=== PATIENT | male | born 1950 | race Caucasian/White ===

== ENCOUNTER → 2016-03-15 | Day surgery (SDC) | payer OTHER ==
[~2016-03-15] MED LIST: ACETYLCYSTEINE 20% 6,000 MG/30 ML ORAL SOLN VIAL ONE; LACTATED RINGER'S 1,000 ML BAG IV ONE; OMEP40CA2 PO; PROPOFOL 500 MG/50 ML BTL IV ONE; RESP: ALBUTEROL 2.5 MG/3 ML NEB (SCH) ONE
== END | disposition home or self-care (01) ==
LOC: ESDC 07:47
PROVIDERS: ATTEND Internal Medicine Gastroenterology
DX: K22.70 Barrett's esophagus without dysplasia (principal)
CPT/HCPCS: 00740; 43229; 88305; J3010; J7120; J7613

== ENCOUNTER → 2016-04-14 | Outpatient (CLI) | payer OTHER ==
[~2016-04-14] VITALS: Ht 176.5 cm; Wt 84.3 kg
[~2016-04-14] MED LIST changes: -ACETYLCYSTEINE 20% 6,000 MG/30 ML ORAL SOLN VIAL ONE; -LACTATED RINGER'S 1,000 ML BAG IV ONE; +PROPOFOL 200 MG/20 ML AMP IV ONE; -PROPOFOL 500 MG/50 ML BTL IV ONE; -RESP: ALBUTEROL 2.5 MG/3 ML NEB (SCH) ONE
[2016-04-14 08:18] VITALS: BP 153/90; PULSE 76; RESP 16; TEMP 98.4; O2SAT 98
--- NOTE | 2016-04-14 09:29 | EKG ---
Date Performed: 04/14/2016 Time Performed: 08:21:46 PTAGE: 66 years EKG: Sinus rhythm NORMAL ECG NO PREVIOUS TRACING DOCTOR: Thad Arevalo Interpretating Date/Time 04/14/2016 09:28:47
[2016-04-14 11:30] VITALS: BP 136/82; PULSE 65; RESP 20; TEMP 97.6; O2SAT 98
--- NOTE | 2016-04-14 11:30 | PD.PROCEDR ---
GI Procedure REFERRING PHYSICIAN Dr. Metzger PROCEDURE PERFORMED Endoscopic ultrasound INDICATION FOR PROCEDURE Cole's esophagus PROCEDURE: The procedure, risks and benefits were discussed with Mr. Colby and informed consent was obtained. Anesthesia sedated him with Diprivan. He was placed in the left lateral decubitus position. EUS: The Pentax videoscope was introduced through the oropharynx and advanced to the stomach. FINDINGS: The esophagus appeared to be unremarkable under endoscopic ultrasound surveillance no nodularity or thickening was seen from top to bottom the patient was noted to have a hiatal hernia and a short segment Cole's but there was no lymphadenopathy and no nodularity and no inhomogeneous changes of the esophageal wall ESTIMATED BLOOD LOSS: None SPECIMENS REMOVED: None COMPLICATIONS: None IMPRESSION: Hiatal hernia Cole's esophagus PLAN: Continue PPI Follow-up with Armand Orellana MD Apr 14, 2016 11:30
== END ==
LOC: HEND 07:46
PROVIDERS: ATTEND Internal Medicine Gastroenterology
DX: K22.70 Barrett's esophagus without dysplasia (principal); K44.9 Diaphragmatic hernia without obstruction or gangrene; Z01.810 Encounter for preprocedural cardiovascular examination
CPT/HCPCS: 43259; 93005